=== PATIENT | female | born 1975 | race Two or more races ===

== ENCOUNTER 2020-02-01 05:20 | Day surgery (SDC) | payer OTHER ==
[~2020-02-01 05:20] MED LIST: BIOTIN1 M1 PO; FLAGYL500MG PO; SYNTHROID100 MCG PO
[2020-02-01] MEDS ORDERED: PERCOCET 5-3251 EACH PO (13:00)
[2020-02-01] MEDS ORDERED: LEVAQUIN500 MG PO (13:01)
[2020-02-01] MEDS ORDERED: HIBICLENS118 ML TOP (13:01)
== END 2020-02-01 16:20 | disposition home or self-care (01) ==
LOC: CIR.AMB 05:20 → ADM 10:45 → CIR.AMB 10:45
PROVIDERS: ATTEND Surgery
DX: K60.1 Chronic anal fissure (principal); K64.4 Residual hemorrhoidal skin tags; K64.8 Other hemorrhoids; Z20.828 Contact with and (suspected) exposure to other viral communicable diseases